=== PATIENT | female | born 1960 | race Caucasian/White ===

== ENCOUNTER 2020-02-07 09:22 | Inpatient (IN) ==
[2020-02-07] MEDS ORDERED: FUROSEMIDE 10 MG/ML VIAL IV ONE (10:08)
[2020-02-07 10:14] LABS: Hematocrit 41.3 % (37.0-47.0); Hemoglobin 12.6 gm/dL (12.5-16.0); Mean Cell Volume 88.4 fl (78-100); Mean Corpuscular Hgb Conc 30.5 g/dl (32-36); Neutrophil # 6.1 K/mm3 (1.3-6.0); Neutrophil % 84.4 % (42-75.0); Platelet Count 165 K/mm3 (150-450); Red Blood Count 4.67 M/mm3 (4.2-5.4); Red Cell Distribution Width 15.6 % (11.5-14.0); White Blood Count 7.2 K/mm3 (4.0-10.5)
--- NOTE | 2020-02-07 10:21 | ERNOTE ---
Dyspnea - Date Date of Service: 02/07/20 - General Presenting Symptoms: shortness of breath Time Seen by Provider: 02/07/20 09:57 Source: patient Exam Limitations: no limitations - Immun/Allergies/Home Medications Immunizations: IMMUNIZATION HX Immunizations Up to Date Yes History of Influenza Vaccine No Hx Pneumococcal Vaccination No Allergies/Adverse Reactions: Allergies No Known Allergies Allergy (Unverified 02/07/20 09:42) Home Medications: HOME MEDICATIONS NK 02/07/20 [Last Taken Unknown] - History of Present Illness Narrative: Patient presents to the ED for 2 weeks of symptoms. She initially had fevers and cough and had negative Covid test. She has experienced progressive SOB since that time. Bilateral leg swelling and worsening SOB. No chest pain. Still some cough with white sputum production but no further fevers. No abdominal pain or bloating. She was 87% on RA at rest here and felt SOB but now feels better or oxygen. Has not seen anyone else for this. SOB worse with exertion. Severity: moderate Treatment PRINCIPAL PROCESS ENGINEER: none Initiating event: Reports: upper resp illness Frequency of episodes: Reports: no prior episodes Modifying Factors - (Improves): Reports: rest Modifying Factors (Worsens): Reports: activity Associated Symptoms-Dyspnea: Reports: cough, ankle/leg swelling. Denies: chest pain/discomfort, palpitations, lightheadedness, weakness Prior Treatment: Denies: recently hospitalized, currently on antibiotics Review of Systems - Review of Systems Constitutional: Present: no symptoms reported EYE: Present: no symptoms reported ENT: Absent: sore throat Respiratory: Present: shortness of breath Cardiology: Absent: chest pain Gastrointestinal/Abdominal: Absent: abdominal pain Neurological: Absent: weakness All Other Systems: All systems neg except as marked Medical History (Last Reviewed 02/07/20 @ 10:18 by David Hernandez MD) No pertinent past medical history Surgical History: Surgical History (Last Reviewed 02/07/20 @ 10:18 by David Hernandez MD) No history of previous surgery Family History: Family History (Last Updated 02/07/20 @ 11:01 by Sarah Gill RN) Other No pertinent family history Social History: (Last Reviewed 02/07/20 @ 10:18 by David Hernandez MD) Tobacco: Smoking Status: Never smoker Alcohol: Alcohol type: wine alcohol intake frequency: holiday/special occasion Substance Use: substance use type: does not use Dietary Habits: caffeine: Yes Type: coffee high-fat food intake: 2 times daily Pets: pets and animals: none Exercise: Physical activity type: none Dahlia/Ep[employer]opalian: special dahlia needs: No agree to transfusion: Yes Physical Exam - Physical Exam General Appearance: Present: alert, no apparent distress Head Exam: Present: normal inspection, no evidence of injury Eye Exam: Normal inspection: bilateral, PERRL: bilateral Ears, Nose, Throat: Present: normal ENT inspection Neck: Present: normal inspection Respiratory: Present: no respiratory distress, other - diminished breat sounds bilaterally, no active wheezing Cardiovascular/Chest: Present: normal peripheral pulses, tachycardia Gastrointestinal/Abdominal: Present: normal bowel sounds, nontender, soft Back Exam: Present: normal range of motion Extremity Exam: Present: non-tender, extremity edema. Absent: calf tenderness Neurological Exam: Present: alert, no motor/sensory deficits Skin Exam: Present: normal color, warm/dry Progress - Results and Orders Patient's Lab Results:: I have reviewed the patient's lab results. - Vital Signs Patient's Vital Signs:: I have reviewed the patient's vital signs. Vital Signs: Vital Signs 02/07/20 09:36 Temperature 36.4 C Pulse Rate 104 H Respiratory Rate 24 H Blood Pressure 179/104 H O2 Sat by Pulse Oximetry 87 L - EKG EKG #1 EKG: NSR EKG read: Interp. by me EKG Comments: Sinus tachycardia rate 114. Non-specific ST/T wave changes, no STEMI noted. - X-Ray X-Ray #1 X-Ray: chest Interpretation: Interp. by me X-ray Comments: I personally reviewed x-ray images as well as official radiology report - CT/Ultrasound CT/Ultrasound Narrative: I personally reviewed official radiology report for CT PE - Progress/Reassessment Chief Complaint: Dyspnea Progress Note-Subjective: 02/07/20 14:08 Patent urinated a good amount and given treatment dose of subQ lovenox. I spoke with Dr Ansari who will admit. Patient understands and is agreeable. Departure Clinical Impression: Pulmonary embolism, New onset of congestive heart failure, Hypoxia - Departure Disposition: Still a patient Condition: Stable
[2020-02-07 10:33] LABS: ALT 36 U/L (19-67); AST 30 U/L (0-48); Albumin * 3.5 gm/dl (3.4-5.0); Alkaline Phosphatase * 49 U/L (50-170); Anion Gap 14.9 mmol/L (6.8-13.8); BNP * 4725 pg/mL (5-205); BUN/Creatinine Ratio 8.3 (9.0-21.6); Blood Urea Nitrogen 8 mg/dL (3-23); Ca. Corrected For Albumin 9.8 mg/dL (8.4-10.2); Calcium * 9.7 mg/dL (7.9-10.9); Carbon Dioxide 27.5 mmol/L (24-32.6); Chloride 101 mmol/L (97-106); Glucose * 208 mg/dL (70-110); Potassium 3.4 mmol/L (3.4-4.6); Sodium 140 mmol/L (132-142); Total Protein 7.6 gm/dL (6.2-8.2); Troponin I Less than 0.017 ng/mL (0.00-0.10)
[2020-02-07] MEDS ORDERED: ENOXAPARIN SODIUM 100 MG/ML SYRG SC SCH (13:45)
--- NOTE | 2020-02-07 16:39 | HP ---
Chief Complaint - Chief Complaint Date of Service: 02/07/20 Time of Service: 16:39 Chief Complaint: shortness of breath History of Present Illness: Patient with no PMHx presents with three weeks of shortness of breath. She also had a fever initially, and tested negative for COVID. Her SOB worsened yesterday and she came to the ED, where workup found pulmonary embolism and right heart prominence on CT, indicative of strain. She was given 40 mg lasix, 150 mg lovenox, and started on oxygen. Initially she was tachycardic and tachypneic, and this was felt to be due to the PE. She does not have signs of infection, making sepsis unlikely, so she was not given fluids or antibiotics. She was initially saturating at 87% on room air, but this improved to the upper 90's on 2 L oxygen via NC. After the initiation of oxygen and administration of lasix, her heart rate and respiratory rates improved and are now normal. On my exam, she is comfortable. She denies previous clots, or clotting problems in her family. No recent surgery or periods of immobility. She is admitted for acute symptom management, and will attempt to wean from oxygen. Medical History (Last Reviewed 02/07/20 @ 15:28 by Aleksandra Gaffney RN) No pertinent past medical history Surgical History: Surgical History (Last Reviewed 02/07/20 @ 15:28 by Aleksandra Gaffney RN) No history of previous surgery Family History: Family History (Last Updated 02/07/20 @ 15:29 by Aleksandra Gaffney RN) Mother Colon cancer Sister Colon cancer Sister Breast cancer Other No pertinent family history Social History: (Last Reviewed 02/07/20 @ 15:29 by Aleksandra Gaffney RN) Tobacco: Smoking Status: Never smoker Alcohol: Alcohol type: wine alcohol intake frequency: holiday/special occasion Substance Use: substance use type: does not use Dietary Habits: caffeine: Yes Type: coffee high-fat food intake: 2 times daily Pets: pets and animals: none Exercise: Physical activity type: none Dahlia/Ad[employer]: special dahlia needs: No agree to transfusion: Yes Review Of Systems (GEN) - Review of Systems Generalized/Overall Review: Present: Fever - 3 weeks ago Respiratory: Present: Shortness of Breath. Absent: Cough Cardiac: Present: Edema. Absent: Chest Pain Abdominal: Absent: Vomiting Genitourinary: Present: No Symptoms Reported Neurological: Present: No Symptoms Reported Skin: Present: Dryness Immunizations: IMMUNIZATION HX Immunizations Up to Date Yes History of Influenza Vaccine No Hx Pneumococcal Vaccination No Allergies/Adverse Reactions: Allergies Allergy/AdvReac Type Severity Reaction Status Date / Time No Known Allergies Allergy Verified 02/07/20 15:30 Home Medications: HOME MEDICATIONS NK 02/07/20 [Last Taken Unknown] Exam - Exam Vital Signs: Vital Signs - Last Taken Temp 36.4 C 02/07/20 15:06 Pulse 107 H 02/07/20 15:40 Resp 14 02/07/20 15:06 BP 139/78 02/07/20 15:06 Pulse Ox 97 02/07/20 15:06 Constitutional: Present: Alert, Cooperative, No distress, Morbidly obese Respiratory: Present: lungs clear, normal breath sounds, no respiratory distress, other - using 2L O2 via NC Cardiovascular/Chest: Present: regular rate, rhythm Abdomen: Present: soft, nontender, obese Extremity: Present: lower extremity edema - 1+ bilaterally Eye contact: Present: cooperative, good eye contact Diagnostic Studies: Abnormal Lab Results 02/07/20 02/07/20 02/07/20 Range/Units 10:03 10:03 10:03 MCHC 30.5 L (32-36) g/dl RDW 15.6 H (11.5-14.0) % Immature Gran % (Auto) 0.70 H (0.001-0.429) % Immature Gran # (Auto) 0.05 H (0.000-0.0310) K/mm3 Neutrophils % 84.4 H (42-75.0) % Lymphocytes % 9.2 L (20-51) % Neutrophils # 6.1 H (1.3-6.0) K/mm3 Lymphocytes # 0.66 L (1.5-3.5) k/mm3 D-Dimer 4.92 H (0.19-0.49) ug/mL Anion Gap 14.9 H (6.8-13.8) mmol/L BUN/Creatinine Ratio 8.3 L (9.0-21.6) Random Glucose 208 H (70-110) mg/dL Alkaline Phosphatase 49 L (50-170) U/L B-Natriuretic Peptide 4725 H (5-205) pg/mL Procalcitonin (0.05-0.50) ng/mL 02/07/20 Range/Units 10:03 MCHC (32-36) g/dl RDW (11.5-14.0) % Immature Gran % (Auto) (0.001-0.429) % Immature Gran # (Auto) (0.000-0.0310) K/mm3 Neutrophils % (42-75.0) % Lymphocytes % (20-51) % Neutrophils # (1.3-6.0) K/mm3 Lymphocytes # (1.5-3.5) k/mm3 D-Dimer (0.19-0.49) ug/mL Anion Gap (6.8-13.8) mmol/L BUN/Creatinine Ratio (9.0-21.6) Random Glucose (70-110) mg/dL Alkaline Phosphatase (50-170) U/L B-Natriuretic Peptide (5-205) pg/mL Procalcitonin Less than 0.05 L (0.05-0.50) ng/mL Laboratory Results WBC 7.2 K/mm3 (4.0-10.5) 02/07/20 10:03 RBC 4.67 M/mm3 (4.2-5.4) 02/07/20 10:03 Hgb 12.6 gm/dL (12.5-16.0) 02/07/20 10:03 Hct 41.3 % (37.0-47.0) 02/07/20 10:03 MCV 88.4 fl (78-100) 02/07/20 10:03 MCH 27.0 pg (27-31) 02/07/20 10:03 MCHC 30.5 g/dl (32-36) L 02/07/20 10:03 RDW 15.6 % (11.5-14.0) H 02/07/20 10:03 Plt Count 165 K/mm3 (150-450) 02/07/20 10:03 MPV 10.0 fl (8-12.5) 02/07/20 10:03 Immature Gran % (Auto) 0.70 % (0.001-0.429) H 02/07/20 10:03 Immature Gran # (Auto) 0.05 K/mm3 (0.000-0.0310) H 02/07/20 10:03 Neutrophils % 84.4 % (42-75.0) H 02/07/20 10:03 Lymphocytes % 9.2 % (20-51) L 02/07/20 10:03 Monocytes % 4.7 % (0.0-9) 02/07/20 10:03 Eosinophils % 0.6 % (0.0-3.0) 02/07/20 10:03 Basophils % 0.4 % (0.0-1.0) 02/07/20 10:03 Nucleated RBC % 0.0 k/mm3 (0-1) 02/07/20 10:03 Neutrophils # 6.1 K/mm3 (1.3-6.0) H 02/07/20 10:03 Lymphocytes # 0.66 k/mm3 (1.5-3.5) L 02/07/20 10:03 Monocytes # 0.3 k/mm3 (0.0-1.0) 02/07/20 10:03 Eosinophils # 0.0 k/mm3 (0.0-0.7) 02/07/20 10:03 Absolute Basophils 0.0 k/mm3 (0.0-0.1) 02/07/20 10:03 D-Dimer 4.92 ug/mL (0.19-0.49) H 02/07/20 10:03 Sodium 140 mmol/L (132-142) 02/07/20 10:03 Plasma Sodium 142 mmol/L (130-142) 02/07/20 10:03 Potassium 3.4 mmol/L (3.4-4.6) 02/07/20 10:03 Chloride 101 mmol/L (97-106) 02/07/20 10:03 Carbon Dioxide 27.5 mmol/L (24-32.6) 02/07/20 10:03 Anion Gap 14.9 mmol/L (6.8-13.8) H 02/07/20 10:03 BUN 8 mg/dL (3-23) 02/07/20 10:03 Creatinine 0.96 mg/dL (0.4-1.4) 02/07/20 10:03 Est GFR (Non-Af Amer) 63 mL/min (60-130) 02/07/20 10:03 BUN/Creatinine Ratio 8.3 (9.0-21.6) L 02/07/20 10:03 Random Glucose 208 mg/dL (70-110) H 02/07/20 10:03 Calcium 9.7 mg/dL (7.9-10.9) 02/07/20 10:03 Calcium Adj for Albumin 9.8 mg/dL (8.4-10.2) 02/07/20 10:03 Total Bilirubin 1.0 mg/dL (0.0-1.1) 02/07/20 10:03 AST 30 U/L (0-48) 02/07/20 10:03 ALT 36 U/L (19-67) 02/07/20 10:03 Alkaline Phosphatase 49 U/L (50-170) L 02/07/20 10:03 Troponin I Less than 0.017 ng/mL (0.00-0.10) 02/07/20 10:03 B-Natriuretic Peptide 4725 pg/mL (5-205) H 02/07/20 10:03 Total Protein 7.6 gm/dL (6.2-8.2) 02/07/20 10:03 Albumin 3.5 gm/dl (3.4-5.0) 02/07/20 10:03 Procalcitonin Less than 0.05 ng/mL (0.05-0.50) L 02/07/20 10:03 SARS-CoV-2 (PCR) Not detected (NotDetected) 02/07/20 10:45 Assessment/Plan - Assessment/Plan (1) Pulmonary embolism Assessment: CT positive for bilateral pulmonary emboli, right greater than left. D dimer 4.92, BNP 4725. Negative COVID. BP has been normal to high. HR and RR imp roved after lasix and oxygen via NC, so she is hemodynamically stable. She was given 150 mg lovenox on admission, and will repeat this tomorrow. Discussed warfarin vs eliquis/xarelto, and will ask her preference tomorrow. Her HASBLED score is 0. Will need to ensure she has done cancer screening tests. This has probably been present for a few weeks, given her recent SOB. She has some evidence of right heart strain on CT. Will obtain Factor V leiden, protein S, protein C deficiencies, antiphospholipid labs at outpatient visit. She could DC as early as tomorrow. Problem: Acute Qualifiers: Chronicity: acute (2) New onset of congestive heart failure Assessment: Will obtain outpatient echo after DC. Problem: Acute (3) Hypoxia Assessment: Improved after lasix and oxygen via NC. Wean as tolerated. Problem: Acute (4) Elevated glucose Assessment: Admission glucose of 208. She does not have a PCP. Will order A1C at follow up visit. Problem: Acute (5) Morbid obesity with BMI of 60.0-69.9, adult Problem: Acute
[2020-02-07] MEDS ORDERED: ENOXAPARIN SODIUM 80 MG/0.8 ML DISP.SYRIN SC SCH (16:45)
[2020-02-07] MEDS ORDERED: FLU VACC QS2020-21(6MOS UP)/PF 60 MCG/0.5 ML SYRINGE IM ONE (17:34)
[2020-02-08] MEDS ORDERED: ENOXAPARIN SODIUM 100 MG, ENOXAPARIN SODIUM 40 MG SC ONE ×2 (08:00)
[2020-02-08] MEDS ORDERED: ENOXAPARIN SODIUM 80 MG/0.8 ML DISP.SYRIN SC ONE (08:00)
[2020-02-08] MEDS ORDERED: FUROSEMIDE 10 MG/ML VIAL IV ONE (08:42)
--- NOTE | 2020-02-08 10:04 | PN ---
Subjective - Date and Time Seen Date: 02/08/20 Time: 09:57 Subjective Narrative: Her shortness of breath is improving, but still present. Still requiring oxygen. Had a respiratory rate of 28 this morning and oxygen of 92% on 1 L. She is able to walk to the bathroom, and is tolerating p.o. intake. Objective - Review of Systems Respiratory: Reports: Shortness of Breath. Denies: Cough Cardiac: Reports: Edema. Denies: Chest Pain Abdominal: Reports: No Symptoms Reported Genitourinary Symptoms: Reports: No Symptoms Reported Musculoskeletal Complaints: Reports: No Symptoms Reported - Vitals Vitals: Last Vital Signs Temp 35.8 C L 02/08/20 06:23 Pulse 93 02/08/20 09:25 Resp 28 H 02/08/20 06:23 BP 132/73 02/08/20 08:59 Pulse Ox 92 L 02/08/20 06:23 - Abnormal Lab Findings Abnormal Lab Findings: Abnormal Lab Results 02/07/20 02/07/20 02/07/20 Range/Units 10:03 10:03 10:03 MCHC 30.5 L (32-36) g/dl RDW 15.6 H (11.5-14.0) % Immature Gran % (Auto) 0.70 H (0.001-0.429) % Immature Gran # (Auto) 0.05 H (0.000-0.0310) K/mm3 Neutrophils % 84.4 H (42-75.0) % Lymphocytes % 9.2 L (20-51) % Neutrophils # 6.1 H (1.3-6.0) K/mm3 Lymphocytes # 0.66 L (1.5-3.5) k/mm3 D-Dimer 4.92 H (0.19-0.49) ug/mL Anion Gap 14.9 H (6.8-13.8) mmol/L BUN/Creatinine Ratio 8.3 L (9.0-21.6) Random Glucose 208 H (70-110) mg/dL Alkaline Phosphatase 49 L (50-170) U/L B-Natriuretic Peptide 4725 H (5-205) pg/mL Procalcitonin (0.05-0.50) ng/mL 02/07/20 Range/Units 10:03 MCHC (32-36) g/dl RDW (11.5-14.0) % Immature Gran % (Auto) (0.001-0.429) % Immature Gran # (Auto) (0.000-0.0310) K/mm3 Neutrophils % (42-75.0) % Lymphocytes % (20-51) % Neutrophils # (1.3-6.0) K/mm3 Lymphocytes # (1.5-3.5) k/mm3 D-Dimer (0.19-0.49) ug/mL Anion Gap (6.8-13.8) mmol/L BUN/Creatinine Ratio (9.0-21.6) Random Glucose (70-110) mg/dL Alkaline Phosphatase (50-170) U/L B-Natriuretic Peptide (5-205) pg/mL Procalcitonin Less than 0.05 L (0.05-0.50) ng/mL - Exam Constitutional: Present: Alert, Cooperative, Morbidly obese Respiratory: Present: lungs clear, normal breath sounds, no respiratory distress, other - On 1 L oxygen via nasal cannula Cardiovascular/Chest: Present: regular rate, rhythm Abdomen: Present: obese Extremity: Present: lower extremity edema - 1+ bilaterally Neurologic: Present: normal mood/affect Eye contact: Present: cooperative, good eye contact Assessment/Plan Plan Narrative: We will continue 150 mg Lovenox twice daily for today, and switch to 10 mg of Eliquis tomorrow in anticipation of discharge. Her 1 mg/kg dose would be 165 mg, but the highest dose for Lovenox is 150 mg, hence current dosing. Her oxygen requirement is decreasing and she is down to 1 L. We will continue to wean from oxygen, and anticipate DC tomorrow. - Problems/Diagnosis (1) Pulmonary embolism Problem: Acute Qualifiers: Chronicity: acute Narrative: See plan narrative (2) New onset of congestive heart failure Problem: Acute Narrative: CT showed evidence of right heart strain. Her PE was likely source. She had some edema on admission, improving after 2 doses of 40 mg IM Lasix. Will obtain outpatient echo after DC. (3) Hypoxia Problem: Acute Narrative: Improving. She is down to 1 L by nasal cannula. (4) Elevated glucose Problem: Acute Narrative: Admission glucose of 208. She does not have a PCP. Will order A1C at follow up visit. (5) Morbid obesity with BMI of 60.0-69.9, adult Problem: Acute
[2020-02-08] MEDS ORDERED: ENOXAPARIN SODIUM 80 MG/0.8 ML DISP.SYRIN SC SCH (19:00)
[2020-02-09] MEDS: APIXABAN 5 MG TABLET PO SCH ×2 (08:37→08:38)
--- NOTE | 2020-02-09 09:39 | DS ---
(1) Pulmonary embolism Problem: Acute Qualifiers: Chronicity: acute (2) New onset of congestive heart failure Problem: Acute (3) Hypoxia Problem: Resolved (4) Elevated glucose Problem: Acute (5) Morbid obesity with BMI of 60.0-69.9, adult Problem: Chronic Date of Discharge:: 02/09/20 Hospital Course: Patient with no PMHx presents with three weeks of shortness of breath. She also had a fever initially, and tested negative for COVID. Her SOB worsened and she came to the ED, where workup found pulmonary embolism and right heart prominence on CT, indicative of strain. She was given 40 mg lasix, 150 mg lovenox, and started on oxygen. Initially she was tachycardic and tachypneic, and this was felt to be due to the PE. She does not have signs of infection, making sepsis unlikely, so she was not given fluids or antibiotics. She was initially saturating at 87% on room air, but this improved to the upper 90's on 2 L oxygen via NC. After the initiation of oxygen and administration of lasix, her heart rate and respiratory rates improved. She was able to wean from oxygen prior to DC. She denies previous clots, or clotting problems in her family. No recent surgery or periods of immobility. She was given 150 mg lovenox bid during her stay. She was given two doses of 40 mg IV lasix. Her edema was felt to be secondary to heart failure from the PE, and may be temporary. Admission glucose of 208. She does not have a PCP. Will order A1C at follow up visit. She also has a murmur, so will order an outpatient echo. Will DC with snehal and rajiv lasix, and have her follow up with me. Procedures Performed: none Results and Findings: Pending Mircobiology Results 02/07/20 10:40 Blood Blood Culture - Preliminary NO GROWTH 24 HOURS 02/07/20 10:03 Blood Blood Culture - Preliminary NO GROWTH 24 HOURS Lab Pending Results 02/07/20 10:03: WBC 7.2, RBC 4.67, Hgb 12.6, Hct 41.3, MCV 88.4, MCH 27.0, MCHC 30.5 L, RDW 15.6 H, Plt Count 165, MPV 10.0, Immature Gran % (Auto) 0.70 H, Immature Gran # (Auto) 0.05 H, Neutrophils % 84.4 H, Lymphocytes % 9.2 L, Monocytes % 4.7, Eosinophils % 0.6, Basophils % 0.4, Nucleated RBC % 0.0, Neutrophils # 6.1 H, Lymphocytes # 0.66 L, Monocytes # 0.3, Eosinophils # 0.0, Absolute Basophils 0.0 02/07/20 10:03: Sodium 140, Plasma Sodium 142, Potassium 3.4, Chloride 101, Carbon Dioxide 27.5, Anion Gap 14.9 H, BUN 8, Creatinine 0.96, Est GFR (Non-Af Amer) 63, BUN/Creatinine Ratio 8.3 L, Random Glucose 208 H, Calcium 9.7, Calcium Adj for Albumin 9.8, Total Bilirubin 1.0, AST 30, ALT 36, Alkaline Phosphatase 49 L, Troponin I Less than 0.017, B-Natriuretic Peptide 4725 H, Total Protein 7.6, Albumin 3.5 02/07/20 10:03: D-Dimer 4.92 H 02/07/20 10:03: Procalcitonin Less than 0.05 L 02/07/20 10:45: SARS-CoV-2 (PCR) Not detected Discharge Location: Home Disposition: Home self-care Condition: Fair Discharge Activity: Activity as tolerated Discharge Diet: General/regular food Referrals: Katherine Ansari DO [Staff Physician] - Two Weeks Prescriptions (Any new or edited meds): Apixaban [Eliquis] 5 mg PO BID 30 Days #70 tab Transmission Status: Pending to [facility] Furosemide [Lasix] 40 mg PO DAILY PRN #30 tab PRN Reason: Edema Transmission Status: Pending to [facility] Complete Home Medications List: Complete Home Medication List: Apixaban [Eliquis] 5 mg PO BID 30 Days #70 tab 02/09/20 Furosemide [Lasix] 40 mg PO DAILY PRN #30 tab 02/09/20
[2020-02-09 12:27] VITALS: BP 110/68
== END 2020-02-09 12:15 | disposition home or self-care (01) | DRG 175 ==
LOC: ER 09:22 → MS 09:22 → OBSVTOIN 14:09 → MS 14:55
PROVIDERS: ADMIT Family Medicine; ATTEND Family Medicine
DX: R09.02 Hypoxemia; R01.1 Cardiac murmur, unspecified; I26.09 Other pulmonary embolism with acute cor pulmonale; R73.9 Hyperglycemia, unspecified; I50.9 Heart failure, unspecified; Z68.44 Body mass index [BMI] 60.0-69.9, adult; E66.01 Morbid (severe) obesity due to excess calories